=== PATIENT | female | born 1975 | race Caucasian/White ===

== ENCOUNTER 2021-04-20 10:38 | Emergency (ER) | payer OTHER ==
[~2021-04-20] VITALS: Ht 167.6 cm; Wt 89.8 kg
[2021-04-20] MEDS ORDERED: PEPCID AC20 MG (10:51)
[2021-04-20] MEDS ORDERED: ACID REDUCER20 M1 (10:51)
== END 2021-04-20 17:23 | disposition home or self-care (01) ==
LOC: ER 10:38
DX: R10.84 Generalized abdominal pain (principal); Z88.8 Allergy status to other drugs, medicaments and biological substances; Z20.822 Contact with and (suspected) exposure to COVID-19